=== PATIENT | male | born 1965 | race Caucasian/White ===

== ENCOUNTER → 2021-03-20 | Outpatient (CLI) | payer BC, OTHER ==
[~2021-03-20] MED LIST: ECOTRIN81 MG PO; IMDUR ER TAB 3030 MG PO; LIPITOR40 MG PO; LOPRESSOR 25 MG25 MG PO; NAPROSYN500 MG PO; XYZAL5 MG PO
== END ==
LOC: HEART 5 15:03
DX: I25.10 Atherosclerotic heart disease of native coronary artery without angina pectoris (principal); Z95.1 Presence of aortocoronary bypass graft
CPT/HCPCS: 93306

== ENCOUNTER → 2022-05-13 | Outpatient (CLI) | payer BC | LOC: KOH-I 12:48 | DX: F17.210 Nicotine dependence, cigarettes, uncomplicated (principal) | CPT/HCPCS: 71271 ==